=== PATIENT | female | born 1945 | race Caucasian/White ===

== ENCOUNTER 2020-11-28 09:36 | Outpatient (CLI) | payer MEDICARE, SELFPAY ==
--- NOTE | ~2020-11-28 | US_ITS ---
EXAMINATION: US thyroid DATE: 11/28/2020 10:12 INDICATION: Localized swelling, mass, and lump, neck. TECHNIQUE: Multiple ultrasound images of the thyroid were obtained. COMPARISON: Thyroid ultrasound 08/05/2016 FINDINGS: The right thyroid lobe measures 8.8 x 3.5 x 3.5 cm. The left thyroid lobe measures 7.3 x 2.6 x 3.6 c m. The thyroid is diffusely heterogeneous and hypoechoic with scattered punctate echogenic foci and increased vascularity. In the right thyroid lobe, there is a 2.2 cm solid, hyperechoic, jheaf-wzra-fn ll nodule with smooth margin without echogenic foci (TI-RADS TR3). In the right thyroid lobe, there i s a 3.1 cm mixed solid and cystic, hyperechoic, jijyw-rrzc-smkc nodule with lobulated margin without echogenic foci (TR4). IMPRESSION: 1. Two right thyroid nodules, new from 08/05/2016. Ultrasound-guided fine-needle aspiration of both n odules is recommended. 2. Chronically heterogeneous and hypervascular thyroid, which may be seen with chronic lymphocytic (H ashimoto) thyroiditis or Graves disease. Reviewed, dictated and finalized at location A. INGENTS SUPERVISOR IMPRESSION: 1. Two right thyroid nodules, new from 08/05/2016. Ultrasound-guided fine-needl e aspiration of both nodules is recommended. 2. Chronically heterogeneous and hypervascular thyroid, which may be seen with chronic lymphocytic (Gus) thyroiditis or Graves disease.
== END 2020-11-28 09:37 | disposition home or self-care (01) ==
PROVIDERS: PCP Family Medicine; Visit Provider Family Medicine
DX: E04.2 Nontoxic multinodular goiter (principal)
CPT/HCPCS: 76536

== ENCOUNTER 2021-01-07 09:38 | Outpatient (CLI) | payer MEDICARE, SELFPAY ==
--- NOTE | ~2021-01-07 | US_ITS ---
EXAMINATION: 1. US FNA w image guidance 2. US FNA additional DATE: 01/07/2021 10:43 INDICATION: Nontoxic thyroid nodules. TECHNIQUE: The procedure and its benefits and risks were discussed with the patient. Risks specifically discusse d included bleeding. The patient verbalized understanding of the risks and agreed to proceed. The nec k was prepped and draped in the usual sterile manner. 1% lidocaine was used for local anesthesia. 5 passes were made with a 25G needle into the lesion in inferior right thyroid lobe under ultrasound g uidance. 5 passes were made with a 25G needle into the lesion in superior right thyroid lobe under ultrasound guidance. There were no immediate complications. The patient understood to call the ordering physici an for results after a week and a half and verbalized that understanding. FINDINGS: Grayscale ultrasound images demonstrate needles advanced into a 2.2 cm nodule in inferior right thyro id lobe for biopsy. Grayscale ultrasound images demonstrate needles advanced into a 3.1 cm nodule in superior right thyroid lobe. IMPRESSION: 1. Ultrasound-guided fine needle aspiration of a nodule in inferior right thyroid lobe. 2. Ultrasound-guided fine-needle aspiration of a nodule in superior right thyroid lobe. Reviewed, dictated and finalized at location A. IMPRESSION: 1. Ultrasound-guided fine needle aspiration of a nodule in inferior right thyr oid lobe. 2. Ultrasound-guided fine-needle aspiration of a nodule in superior right thyro id lobe.
== END 2021-01-07 09:39 | disposition home or self-care (01) ==
PROVIDERS: PCP Family Medicine; Visit Provider Otolaryngology
DX: E04.1 Nontoxic single thyroid nodule (principal)
CPT/HCPCS: 10005; 10006; 88173; 88305

== ENCOUNTER 2022-01-01 07:59 | Outpatient (CLI) | payer MEDICARE, SELFPAY ==
--- NOTE | ~2022-01-01 | MM_ITS ---
EXAMINATION: MM screening michelle BI w citlali HISTORY: Screening TECHNIQUE: Craniocaudal and mediolateral oblique 3-D tomosynthesis images were obtained and synthetic 2-D images were generated. CAD analysis was submitted and interpreted. COMPARISON: Comparison to multiple prior studies sequentially, with oldest reviewed study dated 03/08. BREAST PARENCHYMAL COMPOSITION: The breasts are extremely dense, which lowers the sensitivity of mamm ography FINDINGS: There is no evidence of suspicious mass, calcification, or architectural distortion to sugg est malignancy in either breast. There has been no suspicious interval change. IMPRESSION: 1. No mammographic evidence of malignancy. 2. Recommend routine screening mammography in one year. BI-RADS Category 1: Negative Reviewed, dictated and finalized at location A. ACE GRINDER TENDER
== END 2022-01-01 08:00 | disposition home or self-care (01) ==
PROVIDERS: PCP Family Medicine; Visit Provider Nurse Practitioner Gerontology
DX: Z12.31 Encounter for screening mammogram for malignant neoplasm of breast (principal)
CPT/HCPCS: 77063; 77067

== ENCOUNTER 2022-03-24 09:40 | Outpatient (CLI) | payer MEDICARE, SELFPAY ==
--- NOTE | ~2022-03-24 | DEXA_ITS ---
Bone Density Report Name: TOBY LEON Age: 76 Sex: Female Ethnicity: White Date of : 1945 Indication: osteopenia; height loss; postmenopausal Referring Provider: JAYESH ROME Study: Bone densitometry was performed. Exam Date: March 24, 2022 Accession number: [id number] Bone Density: Region BMD T-score Z-score Classification AP Spine(L1-L4) 0.750 -2.7 -0.3 Osteoporosis Femoral Neck (Left) 0.563 -2.6 -0.5 Osteoporosis Total Hip (Left) 0.627 -2.6 -0.8 Osteoporosis Femoral Neck (Right) 0.596 -2.3 -0.2 Osteopenia Total Hip (Right) 0.653 -2.4 -0.6 Osteopenia Total Hip Mean 0.640 -2.5 -0.7 Osteoporosis World Health Organization criteria for BMD impression classify patients as: Normal (T-score at or above -1.0), Osteopenia (T-score between -1.0 and -2.5), or Osteoporosis (T-score at or below -2.5). 10-year Fracture Risk: FRAX not reported because: Some T-score for Spine Total or Hip Total or Femoral Neck at or below -2.5 Previous Exams: Region Exam Age BMD T-score BMD Change BMD Change Date g/cm2 vs Baseline vs Previous AP Spine (L1-L4) 03/24/2022 76 0.750 -2.7 -0.049 (-6.2%) -0.049 (-6.2%) 06/14/2017 71 0.799 -2.3 Total Hip(Left) 03/24/2022 76 0.627 -2.6 -0.050 (-7.4%) -0.050 (-7.4%) 06/14/2017 71 0.678 -2.2 Total Hip(Right) 03/24/2022 76 0.653 -2.4 -0.030 (-4.4%) -0.030 (-4.4%) 06/14/2017 71 0.683 -2.1 *Denotes significance at 95% confidence level, LSC for AP Spine = 0.022 g/cm2, LSC for Total Hip = 0.027 g/cm2 Clinical Information Provided by Patient: Patient maximum height was 60.5 Menopause Age: 56 Drinks caffeinated beverages Onset of menses at age 12 Number of children 3 Impression: The patient has osteoporosis, based on the Total Spine T-score. The BMD for the AP Spine (L1-L4) decreased, changing by -6.2% since the last DXA exam. The BMD for the Total Hip(Left) decreased, changing by -7.4% since the last DXA exam. The BMD for the Total Hip(Right) decreased, changing by -4.4% since the last DXA exam. Discussion: INCREASED RISK OF FRACTURE. BONE DENSITY IS UNDESIRABLY LOW AT ONE OR MORE SKELETAL SITES, CONSISTENT WITH POSTMENOPAUSAL OSTEOPOROSIS. This patient's lowest T-score meets the World Health Organization's (WHO) criteria for osteoporosis at one or more sites (T-score -2.5 or below). In untreated patients, the risk of osteoporotic fracture increases approximately two-fold for each 1.0 SD de
== END 2022-03-24 09:41 | disposition home or self-care (01) ==
PROVIDERS: PCP Family Medicine; Visit Provider Nurse Practitioner Gerontology
DX: Z78.0 Asymptomatic menopausal state (principal); M81.0 Age-related osteoporosis without current pathological fracture; M85.851 Other specified disorders of bone density and structure, right thigh
CPT/HCPCS: 77080

== ENCOUNTER 2023-05-11 07:59 | Outpatient (CLI) | payer MEDICARE, SELFPAY ==
--- NOTE | ~2023-05-11 | MM_ITS ---
EXAMINATION: MM screening michelle BI w citlali HISTORY: Screening TECHNIQUE: Craniocaudal and mediolateral oblique 3-D tomosynthesis images were obtained and synthetic 2-D images were generated. CAD analysis was submitted and interpreted. COMPARISON: Comparison to multiple prior studies sequentially, with oldest reviewed study dated 03/08. BREAST PARENCHYMAL COMPOSITION: The breasts are extremely dense, which lowers the sensitivity of mamm ography. FINDINGS: There is no evidence of suspicious mass, calcification, or architectural distortion to sugg est malignancy in either breast. There has been no suspicious interval change. IMPRESSION: 1. No mammographic evidence of malignancy. 2. Recommend routine screening mammography in one year. BI-RADS Category 1: Negative Reviewed, dictated and finalized at location A.
== END 2023-05-11 08:00 | disposition home or self-care (01) ==
LOC: ANHIMG 08:01
PROVIDERS: PCP Family Medicine; Visit Provider Family Medicine
DX: Z12.31 Encounter for screening mammogram for malignant neoplasm of breast (principal)
CPT/HCPCS: 77063; 77067

== ENCOUNTER 2024-11-29 08:59 | Outpatient (CLI) | payer MEDICARE, SELFPAY ==
--- NOTE | ~2024-11-29 | MM_ITS ---
EXAMINATION: MM screening michelle BI w citlali HISTORY: Screening TECHNIQUE: Craniocaudal and mediolateral oblique 3-D tomosynthesis images were obtained and synthetic 2-D images were generated. CAD analysis was submitted and interpreted. COMPARISON: Comparison to multiple prior studies sequentially, with oldest reviewed study dated 03/08. BREAST PARENCHYMAL COMPOSITION: Dense: The breasts are extremely dense, which lowers the sensitivity of mammography. FINDINGS: There is no evidence of suspicious mass, calcification, or architectural distortion to sugg est malignancy in either breast. There has been no suspicious interval change. IMPRESSION: 1. No mammographic evidence of malignancy. 2. Recommend routine screening mammography in one year. BI-RADS Category 1: Negative Reviewed, dictated and finalized at location B. UCT MANUFACTURING PROFESSIONAL
--- OUTSIDE RECORDS SUMMARY | 2024-11-29 09:10 | XMS_ITS | Encounter Summary ---
Author Organization [facility] Address [address] [place] [id number] Care Team Providers Care Note Taker Name Role Phone Rachael Olson MD Primary Care Provider [phone]- [phone] Encounter Details Date Type Department Care Team (Latest Contact Info) Description 07/12/2018 Abstract [facility] Shwetha Syed MD [address] [facility] [address] Social History Tobacco Use Types Packs/Day Years Used Date Smoking Tobacco: Never Assessed Comments Unknown Sex and Gender Information Value Date Recorded Sex Assigned at Not on file Legal Sex Female 9:21 PM CDT Gender Identity Not on file Sexual Orientation Not on file documented as of this encounter Plan of Treatment Not on file documented as of this encounter Visit Diagnoses Not on filedocumented in this encounter Care Teams Note Taker Relationship Specialty Start Date End Date Rachael Olson MD [address] [facility] [place] [address] PCP - General FAMILY PRACTICE 08/04/18 documented as of this encounter
--- OUTSIDE RECORDS SUMMARY | 2024-11-29 09:10 | XMS_ITS | Clinical Summary ---
Author Organization [facility] Address [address] [place] [id number] Care Team Providers Care Director Shopper Marketing Name Role Phone Rachael Olson MD Primary Care Provider [phone]- [phone] Allergies No known active allergies Medications propranolol 20 MG tablet Take 20 mg by mouth 2 (two) times daily. 3 08/15/2018 Active Active Problems No known active problems Family History Medical History Relation Comments alzheimers Mother Relation Status Comments Mother Social History Tobacco Use Types Packs/Day Years Used Date Smoking Tobacco: Never Smokeless Tobacco: Never Alcohol Use Standard Drinks/Week Comments No 0 (1 standard drink = 0.6 oz pur e alcohol) AUDIT-C Answer Date Recorded Frequency of Alcohol Consumption Never 09/04/2018 Average Number of Drinks Not on file Frequency of Binge Drinking Not on file 08/24 Comments Unknown Sex and Gender Information Value Date Recorded Sex Assigned at Not on file Legal Sex Female 9:21 PM CDT Gender Identity Not on file Sexual Orientation Not on file Last Filed Vital Signs Vital Sign Reading Time Taken Comments Blood Pressure 118/64 02/28/2018 9:19 AM CDT Pulse 72 02/28/2018 9:18 AM CDT Temperature 36.7 C (98 F) 09/04/2018 9:28 AM SUPERVISOR DRAPERY HANGING Respiratory Rate 20 09/04/2018 9:28 AM SUPERVISOR DRAPERY HANGING Oxygen Saturation 98% 09/04/2018 9:28 AM SUPERVISOR DRAPERY HANGING Inhaled Oxygen Concentration - - Weight 40.7 kg (89 lb 12.8 oz) 09/04/2018 9:28 A M SUPERVISOR DRAPERY HANGING Height 152.4 cm (5') 09/04/2018 9:28 AM SUPERVISOR DRAPERY HANGING Body Mass Index 17.54 09/04/2018 9:28 AM SUPERVISOR DRAPERY HANGING Plan of Treatment Health Maintenance Due Date Last Done Comments Hepatitis C 1963 DTaP, Tdap and Td Vaccines ( 1 - Tdap) 1965 Zoster Vaccines (1 of 2) 1996 Dexa Scan (General) 2011 Pneumococcal Vaccine: 65+ Ye ars (1 of 1 - PCV) 2011 RSV Immunization or 60+ Years (1 - 1-dose 75+ series) 2021 COVID-19 Vaccine (1 - 2023-2 5 season) 2024 Influenza Adult (#1) 2024 Meningococcal B Vaccine Aged Out No l onger eligible based on patient's age to complete this topic Meningococcal Vaccine Aged Out No suzette vilma eligible based on patient's age to complete this topic RSV Immunizations Under 20 Months Aged Out No longer eligible based on patient's age to complete this topic Insurance [facility] Care Teams Director Shopper Marketing Relationship Specialty Start Date End Date Rachael Olson MD [address] [facility] [address] [place] [address] PCP - General FAMILY PRACTICE 08/04/18
== END 2024-11-29 09:00 | disposition home or self-care (01) ==
PROVIDERS: PCP Family Medicine; Visit Provider Family Medicine
DX: Z12.31 Encounter for screening mammogram for malignant neoplasm of breast (principal)
CPT/HCPCS: 77063; 77067